=== PATIENT | male | born 1945 | race Two or more races ===

== ENCOUNTER 2022-07-27 20:55 | Emergency (ER) | payer OTHER ==
[~2022-07-27] VITALS: Ht 170.2 cm; Wt 98.4 kg
[2022-07-27 21:19] VITALS: BP 107/57
--- NOTE | 2022-07-27 21:29 | NUR ---
BLOOD COLLECTED AND SENT TO LAB
--- NOTE | 2022-07-27 21:35 | NUR ---
XRAY AT BEDSIDE
[2022-07-27 21:41] LABS: BASOPHILS # (AUTO) 0.1 K/uL (0.0-0.2); BASOPHILS % (AUTO) 0.8 % (0.0-2.0); EOSINOPHILS % (AUTO) 3.2 % (0.0-6.0); HEMATOCRIT 44 % (39-51); HEMOGLOBIN 13.9 g/dL (13.5-17.5); LYMPHOCYTES # (AUTO) 2.5 K/uL (0.8-4.8); LYMPHOCYTES % (AUTO) 21.6 % (20.0-44.0); MEAN CORPUSCULAR HGB CONC 32 g/dl (31.0-36.0); MEAN CORPUSCULAR VOLUME 86 fL (80-96); MONOCYTES # (AUTO) 0.8 K/uL (0.1-1.30); MONOCYTES % (AUTO) 6.7 % (2.0-12.0); NEUTROPHILS # (AUTO) 7.7 K/uL (1.8-8.9); NEUTROPHILS % (AUTO) 67.7 % (43.0-81.0); PLATELET COUNT (AUTO) 258 K/uL (150-450); RED BLOOD CELL COUNT(AUTO) 5.04 MIL/uL (4.5-6.0); WHITE BLOOD COUNT (AUTO) 11.4 K/uL (4.3-11.0)
[2022-07-27 21:57] LABS: SERUM AMMONIA 14 umol/L (11-32)
[2022-07-27 22:08] LABS: THYROID STIMULATING HORMONE 20.798 uIU/mL (0.358-3.74)
[2022-07-27 22:09] LABS: ALANINE AMINOTRANSFERASE 18 U/L (12-78); ALBUMIN 3.5 g/dL (3.4-5.0); ALCOHOL, BLOOD < 3 mg/dL (0-0); ALKALINE PHOSPHATASE 101 U/L (46-116); ASPARTATE AMINOTRANSFERASE 28 U/L (15-37); BILIRUBIN,DIRECT 0.2 mg/dL (0.0-0.2); BILIRUBIN,TOTAL 0.6 mg/dL (0.2-1.0); CALCIUM, SERUM 8.7 mg/dL (8.5-10.1); CARBON DIOXIDE 31 mmol/L (21-32); CHLORIDE 102 mmol/L (98-107); CREATININE 0.9 mg/dL (0.6-1.3); GLUCOSE 106 mg/dL (74-106); POTASSIUM 4.1 mmol/L (3.5-5.1); SODIUM SERUM 138 mmol/L (136-145); UREA NITROGEN, BLOOD 13 mg/dL (7-18)
--- NOTE | 2022-07-27 22:37 | NUR ---
PER [facility] ETA 60 MINS
--- NOTE | 2022-07-27 23:46 | NUR ---
[phone] FOR REPORT ETA 20 MINS
--- NOTE | 2022-07-27 23:54 | NUR ---
REPORT GIVEN TO HUSSAIN WHITAKER
--- NOTE | 2022-07-28 00:06 | NUR ---
REPORT GIVEN TO RN WITH [facility]
--- NOTE | 2022-07-28 00:06 | NUR ---
PATIENT BEING TRANSFERRED TO [facility]
== END 2022-07-28 00:07 | disposition short-term general hospital (02) ==
LOC: ER 20:57
DX: I60.9 Nontraumatic subarachnoid hemorrhage, unspecified (principal); R47.81 Slurred speech; G81.91 Hemiplegia, unspecified affecting right dominant side; Z20.822 Contact with and (suspected) exposure to COVID-19; R91.8 Other nonspecific abnormal finding of lung field; I48.91 Unspecified atrial fibrillation; I10 Essential (primary) hypertension; R13.10 Dysphagia, unspecified; M62.81 Muscle weakness (generalized); E03.9 Hypothyroidism, unspecified; E78.5 Hyperlipidemia, unspecified
CPT/HCPCS: 99291; 93005; 71045; 70450; 82140; 85025; 80048; 80076; 36415; 84443; 85730; 82962; 87426; 80320; C9803; G0480